=== PATIENT | female | born 1975 | race Caucasian/White ===

== ENCOUNTER → 2018-10-05 | Outpatient (CLI) | payer OTHER ==
[~2018-10-05] MED LIST: DIOVAN40 MG; LISINOPRIL10 MG PO; Z.0.CATAPRES0.1 MG
--- NOTE | 2018-10-05 15:13 | Diagnostic Imaging Report ---
TECHNIQUE: Computed tomography imaging of the RIGHT ELBOW was performed WITHOUT injected contrast. Dose modulation, iterative reconstruction, and/or weight based adjustment of the mA/kV was utilized to reduce the radiation dose to as low as reasonably achievable. HISTORY: Pain COMPARISON: None available. FINDINGS: No fracture. No joint effusion. Normal elbow alignment. Joint spaces preserved. Soft tissues unremarkable. IMPRESSION: No acute osseous or soft tissue abnormality Signed by: Dr. Sebastián Cho M.D. on 10/05/2018 3:10 PM
== END ==
LOC: CT 13:46
PROVIDERS: ATTEND Family Medicine
DX: M25.521 Pain in right elbow (principal)